=== PATIENT | female | born 1955 | race Caucasian/White ===

== ENCOUNTER → 2016-05-09 | Outpatient (CLI) | payer OTHER ==
[~2016-05-09] MED LIST: BUPRTAB51 PO; EPP3/2 IM; MULT-506 PO; TRAZ50TA35 PO
[2016-05-09 13:02] LABS: BASO % 0.4 %; BASO ABS # 0.05 K/uL (0-0.2); COMPLETE YES; EOS % 1.3 %; HEMATOCRIT 47.4 % (37-47); IG% 0.2 %; LYMPH ABS # 2.47 K/uL (1.2-3.4); MEAN CELL VOLUME 95.2 fL (80-100); MEAN CORPUSCULAR HEMOGLOBIN 31.7 pg (25-34); MEAN CORPUSCULAR HGB CONC 33.3 g/dl (32-36); MEAN PLATELET VOLUME 10.2 fL (7.4-10.4); MONO % 7.2 %; NEUT % 69.9 %; PLATELET COUNT 212 K/uL (130-400); RED BLOOD COUNT 4.98 M/uL (4.2-5.4); WHITE BLOOD COUNT 11.75 K/uL (4.8-10.8)
[2016-05-09 13:14] LABS: ALT/SGPT 39 U/L (12-78); BLOOD UREA NITROGEN 16 mg/dl (7-18); BUN/CREATININE RATIO 19.8 (10-20); CALCIUM 9.3 mg/dl (8.5-10.1); CARBON DIOXIDE 30 mmol/L (21-32); CHLORIDE 104 mmol/L (98-107); CHOLESTEROL 158 mg/dl (0-200); CREATININE 0.83 mg/dl (0.60-1.20); GLUCOSE 94 mg/dl (70-99); POTASSIUM 4.4 mmol/L (3.5-5.1); SODIUM 141 mmol/L (136-145); TRIGLYCERIDES 37 mg/dl (0-150); VERY LOW DENSITY LIPOPROT CALC 7 mg/dl
[2016-05-09 13:15] LABS: ESTIMATED AVERAGE GLUCOSE 126 mg/dl; HA1C FLAG Normal (Normal)
[2016-05-09 13:23] LABS: ALB/GLOB RATIO 0.8 (0.9-2); ALKALINE PHOSPHATASE 78 U/L (45-117); AST/SGOT 25 U/L (15-37); HDL CHOLESTEROL 81 mg/dl; LDL CHOLESTEROL CALCULATED 70 mg/dl
[2016-05-10 14:13] LABS: MICROSOMAL AB <1 IU/ML (<9); THYROGLOBULIN 5.4 NG/ML (2.8-40.9)
== END | disposition home or self-care (01) ==
LOC: C.LAB1850 11:34
PROVIDERS: ATTEND Nurse Practitioner Adult Health
DX: R53.83 Other fatigue (principal); E78.5 Hyperlipidemia, unspecified; R73.03 Prediabetes

== ENCOUNTER → 2016-05-16 | Outpatient (CLI) | payer OTHER ==
[2016-05-16 18:27] LABS: C-REACTIVE PROTEIN < 0.29 mg/dl (0-0.29); RHEUMATOID FACTOR < 10.0 U/mL (0-15)
[2016-05-16 19:52] LABS: LYME DISEASE AB IGG NEG (NEG); LYME DISEASE AB IGM NEG (NEG)
== END | disposition home or self-care (01) ==
LOC: C.LAB1850 16:44
PROVIDERS: ATTEND Nurse Practitioner Adult Health
DX: R53.83 Other fatigue (principal)

== ENCOUNTER → 2016-10-04 | Outpatient (CLI) | payer OTHER ==
[2016-10-04 12:42] LABS: HEMATOCRIT 45.5 % (37-47); MEAN CELL VOLUME 96.6 fL (80-100); MEAN CORPUSCULAR HEMOGLOBIN 33.3 pg (25-34); MEAN CORPUSCULAR HGB CONC 34.5 g/dl (32-36); MEAN PLATELET VOLUME 9.4 fL (7.4-10.4); PLATELET COUNT 228 K/uL (130-400); RED BLOOD COUNT 4.71 M/uL (4.2-5.4); WHITE BLOOD COUNT 7.48 K/uL (4.8-10.8)
[2016-10-04 13:11] LABS: ALT/SGPT 41 U/L (12-78); BLOOD UREA NITROGEN 16 mg/dl (7-18); BUN/CREATININE RATIO 25.2 (10-20); CALCIUM 9.2 mg/dl (8.5-10.1); CARBON DIOXIDE 27 mmol/L (21-32); CHLORIDE 106 mmol/L (98-107); CHOLESTEROL 192 mg/dl (0-200); CREATININE 0.64 mg/dl (0.60-1.20); GLUCOSE 87 mg/dl (70-99); SODIUM 139 mmol/L (136-145)
[2016-10-04 13:19] LABS: ALKALINE PHOSPHATASE 95 U/L (45-117); AST/SGOT 22 U/L (15-37); CHOLESTEROL/HDL RATIO 2.2; FERRITIN 85.6 ng/ml (8.0-388.0); HDL CHOLESTEROL 87 mg/dl; LDL CHOLESTEROL CALCULATED 94 mg/dl; TRIGLYCERIDES 54 mg/dl (0-150); VERY LOW DENSITY LIPOPROT CALC 11 mg/dl
[2016-10-04 13:30] LABS: INSULIN FASTING 10.5 mU/L (3-25)
[2016-10-04 13:52] LABS: ESTIMATED AVERAGE GLUCOSE 117 mg/dl; HA1C FLAG Normal (Normal)
[2016-10-10 13:00] LABS: ASCORBIC ACID** 929 0.9 mg/dL (0.2-1.5); C-REACTIVE PROT HIGHSEN 0.4 MG/L; ILGF1 Z SCORE FEMALE 1.3 SD (-2.0 - +2.0); INSULIN LIKE GF BIND PROT 3 3.5 mg/L (3.4-6.9); INSULIN LIKE GROWTH FACTOR-I 236 ng/mL (50-317); IONIZED CALCIUM** TC 19950E 5.18 MG/DL (4.8-5.6); PREGNENELONE **TC 31493X 63 ng/dL (22-237); SEX HORMONE BINDING GLOB 128 NMOL/L (14-73); T3 REVERSE **TC 90963 12 ng/dL (8-25); TESTOSTERONE,TOTAL 185 ng/dL (2-45)
== END | disposition home or self-care (01) ==
LOC: C.LAB1850 10:58
PROVIDERS: ATTEND Internal Medicine
DX: E78.00 Pure hypercholesterolemia, unspecified (principal); R79.82 Elevated C-reactive protein (CRP); D68.2 Hereditary deficiency of other clotting factors; E60 Dietary zinc deficiency; E58 Dietary calcium deficiency; E55.9 Vitamin D deficiency, unspecified; M81.0 Age-related osteoporosis without current pathological fracture; E59 Dietary selenium deficiency; E53.8 Deficiency of other specified B group vitamins; D50.9 Iron deficiency anemia, unspecified; E54 Ascorbic acid deficiency; E01.8 Other iodine-deficiency related thyroid disorders and allied conditions; R53.82 Chronic fatigue, unspecified; E11.9 Type 2 diabetes mellitus without complications; E23.0 Hypopituitarism; N95.1 Menopausal and female climacteric states

== ENCOUNTER → 2017-01-07 | Outpatient (CLI) | payer OTHER ==
[2017-01-07 15:51] LABS: ALT/SGPT 42 U/L (12-78); BLOOD UREA NITROGEN 14 mg/dl (7-18); BUN/CREATININE RATIO 18.8 (10-20); CALCIUM 8.8 mg/dl (8.5-10.1); CARBON DIOXIDE 23 mmol/L (21-32); CHLORIDE 108 mmol/L (98-107); CREATININE 0.72 mg/dl (0.60-1.20); GLUCOSE 96 mg/dl (70-99); POTASSIUM 4.2 mmol/L (3.5-5.1); SODIUM 139 mmol/L (136-145)
[2017-01-07 15:54] LABS: ALB/GLOB RATIO 0.9 (0.9-2); ALKALINE PHOSPHATASE 87 U/L (45-117); AST/SGOT 33 U/L (15-37)
== END | disposition home or self-care (01) ==
LOC: C.LAB1850 14:20
PROVIDERS: ATTEND Psychiatry & Neurology Psychiatry
DX: F33.2 Major depressive disorder, recurrent severe without psychotic features (principal)

== ENCOUNTER → 2017-01-10 | Outpatient (CLI) | payer OTHER | END | disposition home or self-care (01) | LOC: C.LAB1850 14:10 | PROVIDERS: ATTEND Internal Medicine | DX: E23.0 Hypopituitarism (principal); N95.1 Menopausal and female climacteric states ==

== ENCOUNTER → 2017-02-12 | Outpatient (CLI) | payer OTHER ==
[2017-02-12 12:05] LABS: HEMATOCRIT 45.8 % (37-47); MEAN CELL VOLUME 95.8 fL (80-100); MEAN CORPUSCULAR HEMOGLOBIN 31.8 pg (25-34); MEAN CORPUSCULAR HGB CONC 33.2 g/dl (32-36); MEAN PLATELET VOLUME 9.7 fL (7.4-10.4); PLATELET COUNT 270 K/uL (130-400); RED BLOOD COUNT 4.78 M/uL (4.2-5.4); WHITE BLOOD COUNT 8.22 K/uL (4.8-10.8)
[2017-02-12 12:35] LABS: ALB/GLOB RATIO 0.9 (0.9-2); ALKALINE PHOSPHATASE 77 U/L (45-117); ALT/SGPT 37 U/L (12-78); AST/SGOT 23 U/L (15-37); BLOOD UREA NITROGEN 14 mg/dl (7-18); BUN/CREATININE RATIO 24.1 (10-20); CARBON DIOXIDE 28 mmol/L (21-32); CHLORIDE 104 mmol/L (98-107); CHOLESTEROL 200 mg/dl (0-200); CHOLESTEROL/HDL RATIO 2.6; CREATININE 0.59 mg/dl (0.60-1.20); FERRITIN 89.1 ng/ml (8.0-388.0); GLUCOSE 99 mg/dl (70-99); HDL CHOLESTEROL 78 mg/dl; LDL CHOLESTEROL CALCULATED 104 mg/dl; POTASSIUM 3.8 mmol/L (3.5-5.1); SODIUM 136 mmol/L (136-145); TRIGLYCERIDES 88 mg/dl (0-150); VERY LOW DENSITY LIPOPROT CALC 18 mg/dl
[2017-02-12 12:46] LABS: ESTIMATED AVERAGE GLUCOSE 120 mg/dl; HA1C FLAG Normal (Normal)
== END | disposition home or self-care (01) ==
LOC: C.LAB1850 09:55
PROVIDERS: ATTEND Internal Medicine
DX: E78.00 Pure hypercholesterolemia, unspecified (principal); R79.82 Elevated C-reactive protein (CRP); E60 Dietary zinc deficiency; E58 Dietary calcium deficiency; E55.9 Vitamin D deficiency, unspecified; E59 Dietary selenium deficiency; E53.8 Deficiency of other specified B group vitamins; D50.9 Iron deficiency anemia, unspecified; E54 Ascorbic acid deficiency; E01.8 Other iodine-deficiency related thyroid disorders and allied conditions; R53.82 Chronic fatigue, unspecified; E11.9 Type 2 diabetes mellitus without complications; E03.9 Hypothyroidism, unspecified; E23.0 Hypopituitarism; N95.1 Menopausal and female climacteric states

== ENCOUNTER → 2017-02-21 | Outpatient (CLI) | payer OTHER | END | disposition home or self-care (01) | LOC: C.LAB1850 12:04 | PROVIDERS: ATTEND Internal Medicine | DX: N95.1 Menopausal and female climacteric states (principal) ==